=== PATIENT | male | born 1940 | race Caucasian/White ===

== ENCOUNTER 2017-02-17 13:13 | Emergency (ER) | payer MEDICARE ==
[~2017-02-17] VITALS: Ht 177.8 cm; Wt 100.0 kg
[2017-02-17 13:25] VITALS: BP 141/65; PULSE 59; RESP 21; O2SAT 97
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
[2017-02-17 13:39] VITALS: BP 137/65; PULSE 53; RESP 17; O2SAT 96
[2017-02-17 13:57] LABS: BASOPHILS % (AUTO) 0.1 % (0-3); EOSINOPHILS % (AUTO) 0.6 % (0-5); MONOCYTES % (AUTO) 5.3 % (4-12); Mean Corpuscular Hemoglobin 30.5 pg (27.0-35.0); Mean Corpuscular Volume 88.1 fL (81-100); Platelet Count 142 bil/L (150-400)
[2017-02-17 14:10] LABS: INR 1.05 ratio
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
[2017-02-17 14:59] VITALS: BP 117/76; PULSE 73; RESP 17; O2SAT 96
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
[2017-02-17] MEDS ORDERED: oxyCODONE-Acetamin 5-325 mg Tablet PO ONE (15:20)
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
[2017-02-17] MEDS ORDERED: HYDROmorphone 1 mg/mL Inj IVPUSH PRN (16:05)
[2017-02-17 17:10] VITALS: BP 144/67; PULSE 54; RESP 18; O2SAT 94
== END 2017-02-17 16:45 | disposition short-term general hospital (02) ==
LOC: EDBD 13:13 → SED 13:13
DX: S32.509A Unspecified fracture of unspecified pubis, initial encounter for closed fracture (principal); S22.42XA Multiple fractures of ribs, left side, initial encounter for closed fracture; S42.002A Fracture of unspecified part of left clavicle, initial encounter for closed fracture; S00.81XA Abrasion of other part of head, initial encounter; V11.4XXA Pedal cycle driver injured in collision with other pedal cycle in traffic accident, initial encounter; Y93.55 Activity, bike riding; Y99.8 Other external cause status; Y92.410 Unspecified street and highway as the place of occurrence of the external cause; I48.91 Unspecified atrial fibrillation; Z79.01 Long term (current) use of anticoagulants
CPT/HCPCS: 36415; 36430; 51702; 70450; 71010; 71260; 72125; 72170; 74177; 80053; 85014; 85018; 85025; 85610; 85730; 86850; 96374; 99291; 99292; J1170; P9017; Q9967